=== PATIENT | female | born 1955 | race Caucasian/White ===

== ENCOUNTER → 2016-12-25 | Outpatient (CLI) | payer OTHER ==
[~2016-12-25] VITALS: Ht 162.6 cm; Wt 81.6 kg
[~2016-12-25] MED LIST: CALCIUM 500-VI1 EACH PO; CATAPRES0.1 MG PO; ELDERBERRY PO; LYRICA50 MG PO; MEGARED OMEGA-1 EACH PO; PAXIL40 MG PO; RESTORIL30 MG PO; SEROPHENE50 MG PO; VITAMIN C1000 M1 PO; WOMEN'S DAILY1 EAC4 PO; ZYRTEC10 M2 PO
== END | disposition home or self-care (01) ==
LOC: AMB 09:00
PROC: 0DJD8ZZ Inspection of Lower Intestinal Tract, Via Natural or Artificial Opening Endoscopic (ICD-10-PCS; principal; 2016-12-25)
DX: Z12.11 Encounter for screening for malignant neoplasm of colon (principal); K57.30 Diverticulosis of large intestine without perforation or abscess without bleeding; K64.8 Other hemorrhoids; Z88.8 Allergy status to other drugs, medicaments and biological substances
CPT/HCPCS: 93005; J1100; J2250; J2405